=== PATIENT | female | born 1960 | race Hispanic/Latino ===

== ENCOUNTER 2020-12-07 02:31 | Emergency (ER) | payer BC ==
[2020-12-07 02:59] LABS: #Basophils 0.1 thou/uL (0.0-0.2); #Lymphocytes 0.9 thou/uL (1.20-3.40); #Monocytes 0.6 thou/uL (0.11-0.59); #Neutrophils 5.8 thou/uL (1.40-6.50); %Basophils 0.8 % (0.0-1.0); %Eosinophils 0.1 % (0.0-10.0); %Lymphocytes 12.5 % (21.0-51.0); %Monocytes 7.6 % (0.0-10.0); Hemoglobin 14.2 g/dL (12.0-16.0); Mean Corpuscular HGB CONC 31.6 g/dL (32.0-36.0); Mean Corpuscular Hemoglobin 26.4 pg (27.0-31.0); Mean Corpuscular Volume 83.6 fL (78.0-98.0); Mean Platelet Volume 9.2 fL (7.4-10.4); Platelet Count 228 thou/uL (130-400); RBC Distribution Width 13.3 % (11.5-14.5); Red Blood Cell (RBC) Count 5.37 mill/uL (4.20-5.40); White Blood Cell (WBC) Count 7.4 thou/uL (4.8-10.8)
[2020-12-07] MEDS ORDERED: Lidocaine Viscous Sol 2% 15 ml UD Cup ONE (03:05)
[2020-12-07] MEDS ORDERED: Mag-Al Plus 1200 MG/1200 MG/120 MG/30 ML UDCUP ONE (03:05)
[2020-12-07] MEDS ORDERED: Pantoprazole 40 MG VIAL ONE (03:10)
[2020-12-07 03:16] LABS: ALT (SGPT) 41 U/L (8-55); AST (SGOT) 38 U/L (5-34); Albumin 4.3 g/dL (3.5-5.0); Alkaline Phosphatase 98 U/L (40-110); Anion Gap 14 mmol/L (10-20); BUN (Urea Nitrogen) 11 mg/dL (9.8-20.1); Bilirubin, Total 0.4 mg/dL (0.2-1.2); Calc. Creatinine Clearance 0 mL/min (70-130); Carbon Dioxide 23 mmol/L (22-29); Chloride 103 mmol/L (98-107); Globulin 3.8 g/dL (2.4-3.5); Glucose 170 mg/dL (70-105); Lipase 27 U/L (8-78); Potassium 4.3 mmol/L (3.5-5.1); Protein, Total 8.1 g/dL (6.0-8.3); Sodium 136 mmol/L (136-145)
[2020-12-07] MEDS ORDERED: Sucralfate 1 GM TAB ONE (03:31)
[2020-12-07] MEDS ORDERED: Fentanyl 100 MCG/2 ML VIAL ONE (03:32)
[2020-12-07] MEDS ORDERED: hydrALAZINE 20 MG/ML VIAL ONE (04:18)
[2020-12-07] MEDS ORDERED: Morphine 2 MG/ML SYRINGE ONE (07:39)
--- NOTE | 2020-12-07 08:07 | RAD ---
CHEST 1 VIEW: Date: 12/07/2020 INDICATION: 60-year-old female with epigastric abdominal pain. IMPRESSION: No acute cardiopulmonary abnormality. The examination is not appreciably changed from the 06/29/2014 exam. Lungs are clear. Heart size is normal. No pleural effusion or pneumothorax evident. POS: BH
[2020-12-07] MEDS ORDERED: Morphine 4 MG/ML VIAL ONE (08:43)
[2020-12-07 08:53] LABS: SARS-CoV-2 NAA Rapid Test DETECTED (NotDetected)
[2020-12-07] MEDS ORDERED: Iopamidol 370 76% 100 ML VIAL ONE (09:00)
--- NOTE | 2020-12-07 09:26 | CT ---
CT ABDOMEN AND PELVIS WITH IV CONTRAST: Date: 12/07/2020 INDICATION: 60-year-old female with history of epigastric abdominal pain, worse while laying down at night. COMPARISON: CT of the abdomen and pelvis without contrast dated 05/21/2018 from [facility]. Comparison also made with a right upper quadrant ultrasound dated 06/30/2014. FINDINGS: There are areas of subsegmental volume loss involving both lower lobes. There is a patchy ground-glas s nodular opacity within the right lower lobe which may reflect an area of developing pneumonitis. Pl eural based, partially calcified nodule overlying the right hemidiaphragm is stable since 2018 and li chema benign. There is no focal hepatic lesion. There are layered gallstones and gallbladder sludge within a moderate distended gallbladder. No intra hepatic or extrahepatic biliary ductal dilatation is evident. The pancreas, adrenal glands, and spleen appear within normal limits. There are small subcentimeter h ypodensities within the superior pole of the right kidney likely reflecting tiny cyst. There is a 2.5 mm nonobstructing calculus within the inferior pole of the left kidney which is new. No free fluid or enlarged lymph nodes evident. There are mild scattered vascular calcifications involving the abdominal aorta. There is a fat-containing umbilical hernia. There is scattered colonic diverticula without evidence of active diverticulitis. There is a normal a ppearing in the right lower quadrant. Small bowel is of normal caliber. Visualized stomach is unremar kable appearing. The reproductive structures are surgically absent. There is scattered degenerative and osteoarthritic change. IMPRESSION: 1. Gallbladder distention with layered gallstone sludge and stones. Recommend correlation with clini jessica exam for any symptoms and signs of acute calculus cholecystitis. Right upper quadrant ultrasound may be helpful for further characterization. 2. Patchy subsegmental volume loss involving both lower lobes with a single area of ground-glass nod ular opacity in the right lower lobe may reflect changes of a bronchitis and potentially an area of d eveloping bronchopneumonia in the right lower lobe. Recommend correlation with the clinical examinati on. Atypical infectious process such as viral pneumonias could produce similar findings. Recommend co rrelation with COVID testing. 3. Small subcentimeter cysts in the right kidney and a nonobstructing calculus within the inferior p ole of the left kidney. 4. Colonic diverticulosis without evidence of active diverticulitis. 5. Fat-containing umbilical hernia. POS: BH
== END 2020-12-07 08:59 | disposition short-term general hospital (02) ==
LOC: NAV ERS 02:31
DX: K81.0 Acute cholecystitis (principal); Z20.822 Contact with and (suspected) exposure to COVID-19
CPT/HCPCS: 0240U; 71045; 74177; 80053; 83690; 84484; 85025; 93005; 96372; 96374; 96375; 96376; C9113; J0360; J0500; J2270; J3010; Q9967